=== PATIENT | female | born 1945 | race Caucasian/White ===

== ENCOUNTER 2020-10-09 13:15 | Day surgery (SDC) | payer OTHER ==
[~2020-10-09] VITALS: Ht 162.6 cm; Wt 99.8 kg
[2020-10-09 12:48] VITALS: BP 157/72
[2020-10-09 20:05] VITALS: BP 157/97
== END 2020-10-09 20:30 | disposition short-term general hospital (02) ==
LOC: DS 13:15 → OR 15:00 → DS 15:00 → DU 20:08 → DS 20:30
PROVIDERS: ATTEND Internal Medicine Cardiovascular Disease
DX: I25.10 Atherosclerotic heart disease of native coronary artery without angina pectoris (principal); R07.9 Chest pain, unspecified; E78.5 Hyperlipidemia, unspecified; I10 Essential (primary) hypertension; I21.4 Non-ST elevation (NSTEMI) myocardial infarction; R73.03 Prediabetes; H40.9 Unspecified glaucoma; Z86.73 Personal history of transient ischemic attack (TIA), and cerebral infarction without residual deficits; Z82.49 Family history of ischemic heart disease and other diseases of the circulatory system; Z88.2 Allergy status to sulfonamides; Z88.6 Allergy status to analgesic agent
CPT/HCPCS: CLHCL; C1769; C1887; C1894; G0378; J0360; J1644; J2001; J2250; J3010; J3490; Q9967